=== PATIENT | female | born 1995 | race Caucasian/White ===

== ENCOUNTER 2020-08-13 19:09 | Emergency (ER) | payer OTHER, BC ==
[~2020-08-13] VITALS: Ht 167.6 cm; Wt 126.0 kg
[2020-08-13] MEDS ORDERED: ONDANSETRON 2MG/ML, 2ML IVPush ONE (19:30)
[2020-08-13] MEDS ORDERED: SODIUM CHLORIDE 0.9% 1,000ML IVBOLUS ONE (19:30)
[2020-08-13] MEDS ORDERED: SODIUM CHLORIDE FLUSH 10ML SYR IVF ONE (19:30)
[2020-08-13 19:42] LABS: BASOPHILS % (AUTO) 1 % (0-1); EOSINOPHILS % (AUTO) 2 % (1-7); LYMPHOCYTES % (AUTO) 28 % (22-44); MEAN CORPUSCULAR HEMOGLOBIN 30.3 pg (27.0-34.8); MEAN CORPUSCULAR HGB CONC 33.4 g/dL (32.4-35.8); MEAN PLATELET VOLUME 6.3 fL (7.4-10.4); MONOCYTES % (AUTO) 7 % (2-9); NEUTROPHILS % (AUTO) 63 % (42-75); PLATELET COUNT 280 x10^3/uL (130-400); RED CELL DISTRIBUTION WIDTH 13.2 % (9.6-15.2)
[2020-08-13 19:44] LABS: MD NO
[2020-08-13 19:54] LABS: ALBUMIN 3.2 g/dL (3.4-5.0); ANION GAP 7 mmol/L (5-15); CALCIUM 9.1 mg/dL (8.5-10.1); CHLORIDE 107 mmol/L (98-107)
[2020-08-13] MEDS ORDERED: ONDANSETRON 2MG/ML, 2ML ONE (19:59)
--- NOTE | 2020-08-13 20:09 | NUR ---
PT REQUESTING TO HAVE PHENERGAN INSTEAD OF ZOFRAN DUE TO A RECOMMENDATION FROM HER OB DOCTOR. REQUEST PASSED ON TO KAJAL SHELTON
[2020-08-13] MEDS ORDERED: PROMETHAZINE 25 MG/ML, 1ML ONE (20:11)
[2020-08-13 20:13] LABS: ALANINE AMINOTRANSFERASE 28 U/L (12-78); ALKALINE PHOSPHATASE 61 U/L (45-117); BILIRUBIN,TOTAL 0.3 mg/dL (0.2-1.0); CREATININE 0.76 mg/dL (0.55-1.02); TOTAL PROTEIN 7.4 g/dL (6.4-8.2)
[2020-08-13] MEDS ORDERED: PROMETHAZINE 25 MG/ML, 1ML IM ONE (20:30)
[2020-08-13 20:41] LABS: MICROSCOPIC INDICATED
[2020-08-13] MEDS ORDERED: METOCLOPRAMIDE 5 MG/ML, 2ML IVPush ONE (21:00)
[2020-08-13] MEDS ORDERED: DIPHENHYDRAMINE 50 MG/ML, 1ML IV ONE (21:00)
[2020-08-13] MEDS ORDERED: METOCLOPRAMIDE 5 MG/ML, 2ML ONE (21:14)
[2020-08-13] MEDS ORDERED: DIPHENHYDRAMINE 50 MG/ML, 1ML ONE (21:14)
--- NOTE | 2020-08-13 21:31 | NUR ---
pt to ct
--- NOTE | 2020-08-13 22:03 | NUR ---
pt back from ct
--- NOTE | 2020-08-13 22:44 | NUR ---
pt report feeling "a little bit better" after medications.
[2020-08-13 23:22] VITALS: BP 118/64
--- NOTE | 2020-08-13 23:23 | NUR ---
TASK RN: Patient given discharge instructions and they have confirmed that they understand the instructions. Patient ambulatory with steady gait. NAD, all questions answered appropriately, denies additional needs at this time. No personal belongings left in room after discharge.
== END 2020-08-13 23:24 | disposition home or self-care (01) ==
LOC: ED 20:13
DX: O21.0 Mild hyperemesis gravidarum (principal); O23.91 Unspecified genitourinary tract infection in pregnancy, first trimester; R82.71 Bacteriuria; Z3A.10 10 weeks gestation of pregnancy
CPT/HCPCS: 36415; 74181; 76801; 80053; 81001; 84702; 85025; 87086; 96361; 96372; 96374; 96375; 99285; J1200; J2550; J2765; J7030

== ENCOUNTER 2020-09-06 16:09 | Emergency (ER) | payer OTHER, BC ==
[~2020-09-06] VITALS: Ht 167.6 cm; Wt 124.5 kg
--- NOTE | 2020-09-06 16:35 | NUR ---
ERP AT NOW.
[2020-09-06] MEDS ORDERED: SODIUM CHLORIDE FLUSH 10ML SYR IVF ONE (17:30)
[2020-09-06] MEDS ORDERED: ONDANSETRON 2MG/ML, 2ML IVPush ONE (17:30)
[2020-09-06] MEDS ORDERED: FAMOTIDINE 20 MG/2 ML IVPush ONE (17:30)
[2020-09-06] MEDS ORDERED: SODIUM CHLORIDE 0.9% 1,000ML IVBOLUS ONE (17:30)
[2020-09-06 17:37] LABS: ALBUMIN 3.1 g/dL (3.4-5.0); ANION GAP 9 mmol/L (5-15); CALCIUM 8.9 mg/dL (8.5-10.1); CHLORIDE 106 mmol/L (98-107); CREATININE 0.66 mg/dL (0.55-1.02)
[2020-09-06 17:44] LABS: BASOPHILS % (AUTO) 1 % (0-1); EOSINOPHILS % (AUTO) 2 % (1-7); LYMPHOCYTES % (AUTO) 24 % (22-44); MEAN CORPUSCULAR HEMOGLOBIN 30.9 pg (27.0-34.8); MEAN PLATELET VOLUME 6.6 fL (7.4-10.4); MONOCYTES % (AUTO) 6 % (2-9); NEUTROPHILS % (AUTO) 68 % (42-75); PLATELET COUNT 267 x10^3/uL (130-400); RED BLOOD COUNT 4.63 x10^6/uL (3.82-5.3); RED CELL DISTRIBUTION WIDTH 13.1 % (9.6-15.2)
[2020-09-06] MEDS ORDERED: ONDANSETRON 2MG/ML, 2ML ONE (18:02)
[2020-09-06] MEDS ORDERED: FAMOTIDINE 20 MG/2 ML ONE (18:02)
[2020-09-06 18:19] VITALS: BP 112/50
--- NOTE | 2020-09-06 18:20 | NUR ---
PT MEDICATED PER ORDERS. WATER PROVIDED FOR PO CHALLENGE. MOTHER AT BS. Addendum: 09/06/20 at 1821 by HBENSON PT DENIES NAUSEA AT THIS TIME, JUST STATES, "I FEEL TIRED."
--- NOTE | 2020-09-06 18:43 | NUR ---
PT TOLERATING WATER. ERP AT FOR RECHECK.
--- NOTE | 2020-09-06 19:07 | NUR ---
ERP WAS IN FOR RECHECK. D/C INSTRUCTIONS & F/U APPT RV'WD WITH PT, SHE VERBALIZES UNDERSTANDING. AMBULATED OUT OF ED WITH MOTHER WITHOUT DIFFICULTY.
== END 2020-09-06 19:07 | disposition home or self-care (01) ==
LOC: ED 19:01
DX: O21.0 Mild hyperemesis gravidarum (principal); O99.512 Diseases of the respiratory system complicating pregnancy, second trimester; J45.909 Unspecified asthma, uncomplicated; Z3A.14 14 weeks gestation of pregnancy
CPT/HCPCS: 36415; 80048; 82040; 85025; 96361; 96374; 96375; 99284; J2405; J7030

== ENCOUNTER 2020-11-17 13:04 | Outpatient (CLI) | payer OTHER, BC ==
[~2020-11-17] VITALS: Ht 167.6 cm; Wt 126.4 kg
[2020-11-17 13:27] VITALS: BP 123/56
== END 2020-11-17 15:51 | disposition home or self-care (01) ==
LOC: LDOP 13:04
PROVIDERS: ATTEND Student in an Organized Health Care Education/Training Program
DX: O26.892 Other specified pregnancy related conditions, second trimester (principal); R10.9 Unspecified abdominal pain; Z3A.24 24 weeks gestation of pregnancy